=== PATIENT | male | born 1955 | race Caucasian/White ===

== ENCOUNTER → 2017-07-07 | Outpatient (CLI) | payer MEDICARE, BC, OTHER ==
[2017-07-12 14:18] LABS: STREP PNEUMO TYPE 1 3.4 ug/mL (>1.3); STREP PNEUMO TYPE 12F 0.6 ug/mL (>1.3); STREP PNEUMO TYPE 14 12.7 ug/mL (>1.3); STREP PNEUMO TYPE 18C 1.6 ug/mL (>1.3); STREP PNEUMO TYPE 19A 2.6 ug/mL (>1.3); STREP PNEUMO TYPE 19F 3.1 ug/mL (>1.3); STREP PNEUMO TYPE 23F 1.3 ug/mL (>1.3); STREP PNEUMO TYPE 3 0.3 ug/mL (>1.3); STREP PNEUMO TYPE 4 0.1 ug/mL (>1.3); STREP PNEUMO TYPE 6B 3.3 ug/mL (>1.3); STREP PNEUMO TYPE 7F 2.7 ug/mL (>1.3); STREP PNEUMO TYPE 8 1.2 ug/mL (>1.3); STREP PNEUMO TYPE 9N 0.5 ug/mL (>1.3); STREP PNEUMO TYPE 9V 2.2 ug/mL (>1.3)
== END ==
LOC: M SMT 10:46
DX: D84.9 Immunodeficiency, unspecified (principal)
CPT/HCPCS: 86609

== ENCOUNTER → 2019-01-18 | Outpatient (REF) | LOC: M LAB LCGH 14:57 | PROVIDERS: ATTEND Surgery | DX: K35.33 Acute appendicitis with perforation, localized peritonitis, and gangrene, with abscess (principal) ==